=== PATIENT | male | born 1990 | race African-American/Black ===

== ENCOUNTER 2023-03-23 11:37 | Emergency (ER) | payer MEDICAID, OTHER ==
[~2023-03-23] VITALS: Ht 167.6 cm; Wt 80.0 kg
[2023-03-23 11:38] VITALS: O2SAT 96
[2023-03-23] MEDS ORDERED: SODIUM CHLORIDE 0.9% 1,000 ML IV ONE (13:00)
[2023-03-23 14:55] LABS: BASOPHILS % 0.4 % (0.0-2.0); DIFFERENTIAL COMMENT 0; EOSINOPHILS % 0.9 % (0.0-5.0); HEMATOCRIT. 37.3 % (42.0-52.0); HEMOGLOBIN. 13.3 g/dL (14.0-18.0); LYMPHOCYTES % 40.4 % (20.0-50.0); MEAN CORPUSCULAR HEMOGLOBIN 27.2 pg (28.0-32.0); MEAN CORPUSCULAR HGB CONC 35.7 g/dL (31.0-37.0); MEAN CORPUSCULAR VOLUME 76.3 fL (80.0-94.0); MEAN PLATELET VOLUME 6.9 fl (7.4-10.4); MONOCYTES % 6.1 % (2.0-8.0); NEUTROPHILS % 52.2 % (40.0-76.0); PLATELET 236 x1000/uL (130-400); RED BLOOD CELL COUNT 4.89 mill/uL (4.7-6.1); RED CELL DISTRIBUTION WIDTH 14.4 % (11.6-14.6); WHITE BLOOD COUNT 6.5 x1000/uL (4.5-11.0)
[2023-03-23 15:04] LABS: ALANINE AMINOTRANSFERASE 9 IU/L (10-49); ALBUMIN 3.6 g/dL (3.2-4.8); ASPARTATE AMINOTRANSFERASE 11 IU/L (<34); BILIRUBIN TOTAL 0.4 mg/dL (0.1-1.0); CALCIUM 8.5 mg/dL (8.7-10.4); CARBON DIOXIDE 28 mEq/L (21-32); CHLORIDE 102 mEq/L (98-107); CREATININE 0.8 mg/dL (0.6-1.3); POTASSIUM 4.1 mEq/L (3.5-5.1); PROTEIN TOTAL 6.8 g/dL (6.0-8.3); SODIUM 133 mEq/L (136-145); UREA NITROGEN BLOOD 13 mg/dL (9-23)
[2023-03-23 15:49] LABS: GLUCOSE 433 mg/dL (70-105)
[2023-03-23] MEDS ORDERED: BO1 TP (16:10)
[2023-03-23 16:15] VITALS: BP 139/88; PULSE 89; RESP 16; TEMP 98.2
== END 2023-03-23 16:47 | disposition home or self-care (01) ==
LOC: ER 11:37
DX: E11.65 Type 2 diabetes mellitus with hyperglycemia (principal); I10 Essential (primary) hypertension; Z48.02 Encounter for removal of sutures; Z86.59 Personal history of other mental and behavioral disorders
CPT/HCPCS: 80053; 82010; 82962; 85025; 87040; 36415; 99283; J7030; Z7610 ×4

== ENCOUNTER 2023-10-03 18:48 | Inpatient (IN) | payer OTHER, MEDICAID ==
[~2023-10-03] VITALS: Ht 172.7 cm; Wt 97.1 kg
[~2023-10-03 18:48] MED LIST: AMLO10TA80 PO; BO1 TP; GABA-534 PO; INSU100I45 EXT; LANTUSUD SUBCUT
[2023-10-03] MEDS: SODIUM CHLORIDE 0.9% 1,000 ML IV ONE ×2 (19:15→21:20)
[2023-10-03 20:01] LABS: BG BASE EXCESS -4.3 mmol/L (-2.0-2.0); BG CARBOXYHEMOGLOBIN 2.8 % (0.5-1.5); BG DEOXYHEMOGLOBIN 26.3 % (0.0-5.0); BG FRACTION INSPIRED OXYGEN 21; BG HCO3 ACT 19.5 mmol/L (22.0-26.0); BG METHEMOGLOBIN 0.3 % (0.0-1.5); BG OXYGEN SATURATION 72.9 % (92.0-98.5); BG OXYHEMOGLOBIN 70.6 % (94.0-97.0); BG PCO2 32.7 mmHg (35.0-45.0); BG PH 7.394 (7.350-7.450); BG SAMPLE SITE VBG - N/A; BG TOTAL HEMOGLOBIN 14.8 g/dL (12.0-18.0); BG VENT MODE ROOM AIR
[2023-10-03 20:12] LABS: *AMPHETAMINES SCREEN URINE PRESUMPTIVE POSITIVE (NEGATIVE); *BARBITURATES SCREEN URINE NEGATIVE (NEGATIVE); *BENZODIAZEPINES SCREEN URINE NEGATIVE (NEGATIVE); *COCAINE SCREEN URINE NEGATIVE (NEGATIVE); CANNABINOID URINE SCREEN NEGATIVE (NEGATIVE); ECSTASY MDMA SCREEN URINE NEGATIVE (NEGATIVE); METHADONE URINE SCREEN NEGATIVE (NEGATIVE); OPIATES URINE SCREEN NEGATIVE (NEGATIVE); PHENCYCLIDINE URINE SCREEN NEGATIVE (NEGATIVE)
[2023-10-03 20:21] LABS: CLARITY URINE CLEAR (CLEAR); COLOR URINE YELLOW (YELLOW); GLUCOSE URINE 3+ (NEGATIVE); KETONES URINE TRACE (NEGATIVE); LEUKOCYTE ESTERASE URINE NEGATIVE (NEGATIVE); NITRITE URINE NEGATIVE (NEGATIVE); OCCULT BLOOD URINE 1+ (NEGATIVE); PROTEIN URINE 3+ (NEGATIVE); SPECIFIC GRAVITY URINE 1.037 (1.005-1.030); UROBILINOGEN URINE 0.2 E.U./dL (0.2-1.0)
[2023-10-03 20:27] LABS: CARBON DIOXIDE 18 mEq/L (21-32); CHLORIDE 99 mEq/L (98-107); POTASSIUM 5.1 mEq/L (3.5-5.1); SODIUM 129 mEq/L (136-145)
[2023-10-03 20:28] LABS: CALCIUM 8.7 mg/dL (8.7-10.4)
[2023-10-03] MEDS ORDERED: GABAPENTIN 400MG CAPSULE PO ONE (20:30)
[2023-10-03 20:32] LABS: CREATININE 1.2 mg/dL (0.6-1.3)
[2023-10-03 20:33] LABS: UREA NITROGEN BLOOD 11 mg/dL (9-23)
[2023-10-03 20:35] LABS: ETHANOL BLOOD < 10 mg/dL (<10); GLUCOSE 595 mg/dL (70-105)
[2023-10-03 20:38] LABS: BACTERIA URINE 1+; SQUAMOUS EPITHELIAL CELL URINE RARE /lpf (RARE/1+); WBC URINE 0-2 /hpf (0-2)
[2023-10-03 20:40] LABS: BASOPHILS % 0.5 % (0.0-2.0); DIFFERENTIAL COMMENT 0; EOSINOPHILS % 0.7 % (0.0-5.0); HEMATOCRIT. 43.3 % (42.0-52.0); HEMOGLOBIN. 15.6 g/dL (14.0-18.0); LYMPHOCYTES % 35.4 % (20.0-50.0); MEAN CORPUSCULAR VOLUME 83.3 fL (80.0-94.0); MEAN PLATELET VOLUME 7.4 fl (7.4-10.4); MONOCYTES % 5.1 % (2.0-8.0); NEUTROPHILS % 58.3 % (40.0-76.0); PLATELET 234 x1000/uL (130-400); RED CELL DISTRIBUTION WIDTH 14.8 % (11.6-14.6); WHITE BLOOD COUNT 6.8 x1000/uL (4.5-11.0)
[2023-10-03 20:43] LABS: BETA HYDROXYBUTYRATE 1.3 mMol/L (0.0-0.3)
[2023-10-03] MEDS ORDERED: INSULIN REGULAR (HUMULIN R) 1000UNITS/10ML VIAL SUBCUT ONE (20:45)
[2023-10-03] MEDS: ACETAMINOPHEN 1000MG/100ML 100 ML IV ONE (20:45)
[2023-10-03 22:04] LABS: ALANINE AMINOTRANSFERASE 17 IU/L (10-49); ALBUMIN 3.9 g/dL (3.2-4.8); ASPARTATE AMINOTRANSFERASE 33 IU/L (<34); BILIRUBIN TOTAL 0.4 mg/dL (0.1-1.0); PROTEIN TOTAL 6.9 g/dL (6.0-8.3)
[2023-10-03 22:10] LABS: BILIRUBIN DIRECT < 0.1 mg/dL (<=3.0)
[2023-10-03] MEDS ORDERED: GUAIFENESIN 200MG/10ML SUGAR FREE UDC PO PRN (22:15)
[2023-10-03] MEDS ORDERED: ACETAMINOPHEN 325MG TABLET PO PRN ×2 (22:15)
[2023-10-03] MEDS ORDERED: IPRATROPIUM/ALBUTEROL 0.5-3(2.5)MG/3ML NEB HHN PRN (22:15)
[2023-10-03] MEDS ORDERED: DEXTROSE 50% WATER 50ML SYRINGE IV PRN (22:45)
[2023-10-03] MEDS ORDERED: SODIUM PHOSPHATE 15 MMOL in SODIUM CHLORIDE 0.9% 245 ML IV PRN (22:45)
[2023-10-03] MEDS ORDERED: MAGNESIUM 2 G PREMIX 50 ML IV PRN (22:45)
[2023-10-03] MEDS: INSULIN REGULAR (HUMULIN R) 1000UNITS/10ML VIAL SUBCUT NR (22:45)
[2023-10-03] MEDS: BLOOD SUGAR DIAGNOSTIC STRIP TEST SCH (22:45)
[2023-10-03] MEDS ORDERED: INSULIN REGULAR (DRIP) 100 UNITS in SODIUM CHLORIDE 0.9% 99 ML IV SCH (22:45)
[2023-10-03] MEDS: SODIUM CHLORIDE 0.9% 1,000 ML IV SCH (22:45)
[2023-10-03] MEDS ORDERED: POTASSIUM CHLORIDE 40 MEQ in SODIUM CHLORIDE 0.9% 230 ML IV PRN (22:45)
[2023-10-03] MEDS ORDERED: BLOOD SUGAR DIAGNOSTIC STRIP TEST PRN (22:45)
[2023-10-03] MEDS ORDERED: KCL 20MEQ/100ML PREMIX 100 ML IV PRN (22:45)
[2023-10-03] MEDS ORDERED: DEXT 5%/0.9% NACL 1,000 ML IV SCH (22:45)
[2023-10-04] MEDS: AMLODIPINE 10MG TABLET PO SCH (00:45)
[2023-10-04 01:21] LABS: CREATINE KINASE 94 IU/L (46-171)
[2023-10-04] MEDS: PANTOPRAZOLE SODIUM 40 MG/VIAL IV SCH (01:30)
[2023-10-04] MEDS ORDERED: DEXTROSE 50% WATER 50ML SYRINGE IV PRN (01:30)
[2023-10-04 04:00] VITALS: BP 163/97; PULSE 95; RESP 20; TEMP 97.4
[2023-10-04 07:22] LABS: BASOPHILS % 0.7 % (0.0-2.0); EOSINOPHILS % 2.1 % (0.0-5.0); HEMATOCRIT. 38.5 % (42.0-52.0); HEMOGLOBIN. 13.5 g/dL (14.0-18.0); LYMPHOCYTES % 38.4 % (20.0-50.0); MEAN CORPUSCULAR HEMOGLOBIN 28.9 pg (28.0-32.0); MEAN CORPUSCULAR HGB CONC 35.1 g/dL (31.0-37.0); MEAN CORPUSCULAR VOLUME 82.3 fL (80.0-94.0); MEAN PLATELET VOLUME 7.7 fl (7.4-10.4); MONOCYTES % 6.6 % (2.0-8.0); NEUTROPHILS % 52.2 % (40.0-76.0); PLATELET 171 x1000/uL (130-400); RED BLOOD CELL COUNT 4.68 mill/uL (4.7-6.1); RED CELL DISTRIBUTION WIDTH 14.9 % (11.6-14.6); WHITE BLOOD COUNT 5.7 x1000/uL (4.5-11.0)
[2023-10-04 07:26] LABS: CARBON DIOXIDE 24 mEq/L (21-32); CHLORIDE 105 mEq/L (98-107); POTASSIUM 3.6 mEq/L (3.5-5.1); SODIUM 137 mEq/L (136-145)
[2023-10-04 07:28] LABS: CALCIUM 8.3 mg/dL (8.7-10.4)
[2023-10-04 07:32] LABS: CREATININE 0.8 mg/dL (0.6-1.3); TRIGLYCERIDE 452 mg/dL (0-150)
[2023-10-04 07:33] LABS: LDL CHOLESTEROL 128 mg/dL (5-100); UREA NITROGEN BLOOD 10 mg/dL (9-23)
[2023-10-04 07:34] LABS: CHOLESTEROL 240 mg/dL (<200); HDL CHOLESTEROL 39 mg/dL (>55)
[2023-10-04 07:37] LABS: T4 FREE 1.25 ng/dL (0.89-1.76); THYROID STIMULATING HORMONE 1.27 uIU/mL (0.55-4.78)
[2023-10-04 07:50] LABS: GLUCOSE 334 mg/dL (70-105)
[2023-10-04 08:00] VITALS: BP 159/95; PULSE 82; RESP 16; TEMP 97.9
[2023-10-04] MEDS: BLOOD SUGAR DIAGNOSTIC STRIP TEST SCH (08:27)
[2023-10-04] MEDS: ENOXAPARIN 40MG/0.4ML SYR SUBCUT SCH (08:28)
[2023-10-04] MEDS: INSULIN LISPRO 100 UNITS/ML SUBCUT SCH ×2 (08:45→17:38)
[2023-10-04 09:12] LABS: PHOSPHORUS 3.8 mg/dL (2.5-4.9)
[2023-10-04] MEDS: INSULIN GLARGINE 100 UNITS/ML SUBCUT SCH (10:44)
[2023-10-04 12:00] VITALS: BP 137/82; PULSE 79; RESP 15; TEMP 97.6
[2023-10-04 16:00] VITALS: BP 164/85; PULSE 75; RESP 15; TEMP 97.5
[2023-10-04] MEDS: METOCLOPRAMIDE HCL 5MG TABLET PO SCH (17:36)
[2023-10-04] MEDS: FENOFIBRATE NANOCRYSTALLIZED 145MG TABLET PO SCH (17:36)
[2023-10-04] MEDS: CLONIDINE 0.1MG TABLET PO PRN (18:06)
[2023-10-04 20:00] VITALS: BP 150/81; PULSE 119; RESP 18; TEMP 98.6
[2023-10-05] VITALS: BP 140/86; PULSE 108; RESP 18; TEMP 98
[2023-10-05 04:00] VITALS: BP 142/60; PULSE 96; RESP 16; TEMP 97.6
[2023-10-05 08:00] VITALS: BP 168/97; PULSE 107; RESP 16; TEMP 97.2
[2023-10-05] MEDS ORDERED: LOSA25TA26 PO (11:46)
[2023-10-05] MEDS ORDERED: LANTUSUD SUBCUT (11:46)
[2023-10-05] MEDS ORDERED: INSLIS SUBCUT (11:46)
[2023-10-05 12:00] VITALS: BP 159/100; PULSE 113; RESP 18; TEMP 97.3
[2023-10-05 12:03] VITALS: BP 159/95; PULSE 95; TEMP 97.3; O2SAT 97
[2023-10-05 13:20] VITALS: BP 155/90; PULSE 100
[2023-10-06] MEDS ORDERED: FAMOTIDINE 20MG/2ML VIAL IV SCH (09:00)
== END 2023-10-05 14:43 | disposition home or self-care (01) | DRG 638 ==
LOC: ER 18:48 → 8WST 20:52 → EDBEDREQ 21:05
PROVIDERS: ADMIT Preventive Medicine Clinical Informatics; ATTEND Preventive Medicine Clinical Informatics
DX: E11.00 Type 2 diabetes mellitus with hyperosmolarity without nonketotic hyperglycemic-hyperosmolar coma (NKHHC) (principal); N17.9 Acute kidney failure, unspecified; E11.65 Type 2 diabetes mellitus with hyperglycemia; I16.0 Hypertensive urgency; I10 Essential (primary) hypertension; Z79.4 Long term (current) use of insulin; Z79.899 Other long term (current) drug therapy; Z87.891 Personal history of nicotine dependence; Z89.512 Acquired absence of left leg below knee; Z91.148 Patient's other noncompliance with medication regimen for other reason
CPT/HCPCS: 36415; 36600; 80048; 80061; 80076; 80305; 80320; 81003; 82010; 82375; 82550; 82805; 82962; 83036; 83605; 83735; 83930; 83935; 84100; 84145; 84439; 84443; 85025; 99285; J1650; J1815; J2470; J7030; J8597; G0480; J0131